=== PATIENT | female | born 1980 | race Caucasian/White ===

== ENCOUNTER 2019-09-29 06:43 | Day surgery (SDC) | payer BC ==
[~2019-09-29 06:43] MED LIST: Lactated Ringers 1,000 ML IV SCH
[2019-09-29] MEDS ORDERED: fentaNYL 250 MCG/5 ML SDV ONE (06:53)
[2019-09-29] MEDS ORDERED: Propofol 200 MG/20 ML SDV ONE (06:53)
[2019-09-29] MEDS ORDERED: Midazolam 1 MG/ML 2 ML SDV ONE (06:53)
[2019-09-29] MEDS ORDERED: Rocuronium 100 MG/10 ML Syringe ONE (06:59)
[2019-09-29] MEDS ORDERED: Ketorolac 30 MG/ML SDV ONE (06:59)
[2019-09-29] MEDS ORDERED: Ondansetron 4 MG/2 ML SDV ONE (06:59)
[2019-09-29] MEDS ORDERED: Lidocaine 2% 5 ML SDV ONE (06:59)
[2019-09-29] MEDS ORDERED: Glycopyrrolate 0.2 MG/ML SDV ONE ×2 (06:59→08:18)
[2019-09-29] MEDS ORDERED: Sugammadex Sodium 200 MG/2 ML VIAL ONE (07:00)
[2019-09-29] MEDS ORDERED: Desflurane 240 ML Bottle ONE (07:09)
[2019-09-29] MEDS ORDERED: fentaNYL 100 MCG/2 ML SDV IVPUSH PRN (07:15)
[2019-09-29] MEDS ORDERED: Atropine 0.1 MG/ML 10 ML Syringe IVPUSH PRN ×2 (07:15)
[2019-09-29] MEDS ORDERED: Sodium Chloride 0.9% 10 ML SDV IV PRN (07:15)
[2019-09-29] MEDS ORDERED: 50% Dextrose in Water 50 ML Syringe IVPUSH PRN (07:15)
[2019-09-29] MEDS ORDERED: Sodium Chloride 0.9% 10 ML Syringe FLUSH PRN (07:15)
[2019-09-29] MEDS ORDERED: Sodium Chloride 0.9% 2.5 ML Syringe FLUSH PRN (07:15)
[2019-09-29] MEDS ORDERED: EPINEPHrine 1:10,000 1 MG/10 ML Syringe IVPUSH PRN (07:15)
[2019-09-29] MEDS ORDERED: Naloxone 0.4 MG/ML Syringe IVPUSH PRN (07:15)
[2019-09-29] MEDS ORDERED: Albuterol 0.083% 2.5 MG/3 ML Neb Soln NEB PRN (07:15)
--- NOTE | 2019-09-29 07:19 | PCM.PREANE ---
Preanesthetic Assessment - Anesthesia/Transfusion/Family Hx Anesthesia History: Prior Anesthesia Without Reaction (Regional only) Family History of Anesthesia Reaction: No Transfusion History: No Prior Transfusion(s) - Review of Systems General: No Symptoms Pulmonary: No Symptoms Cardiovascular: No Symptoms Gastrointestinal: No Symptoms Neurological: No Symptoms Other: Reports: None - Physical Assessment NPO Status Date: 09/28/19 NPO Status Time: 20:00 Vital Signs: Last Vital Signs Temp 97.3 F 09/29/19 06:50 Pulse 106 H 09/29/19 06:50 Resp 18 09/29/19 06:50 BP 114/66 09/29/19 06:50 Pulse Ox Height: 5 ft 5 in Weight: 67.585 kg ASA Class: 2 Mental Status: Alert & Oriented x3 Airway Class: Mallampati = 1 Dentition: Reports: Normal Dentition Thyro-Mental Finger Breadths: 3 Mouth Opening Finger Breadths: 3 ROM/Head Extension: Full Lungs: Clear to Auscultation, Normal Respiratory Effort Cardiovascular: Regular Rate, Regular Rhythm - Lab Values: Laboratory Last Values WBC 7.41 K/uL (4.0-11.0) 09/29/19 07:02 RBC 4.59 M/uL (4.30-5.90) 09/29/19 07:02 Hgb 14.1 g/dL (12.0-16.0) 09/29/19 07:02 Hct 41.2 % (36.0-46.0) 09/29/19 07:02 MCV 89.8 fL (80.0-98.0) 09/29/19 07:02 MCH 30.7 pg (27.0-32.0) 09/29/19 07:02 MCHC 34.2 g/dL (31.0-37.0) 09/29/19 07:02 RDW Std Deviation 42.1 fl (28.0-62.0) 09/29/19 07:02 RDW Coeff of Mayur 13 % (11.0-15.0) 09/29/19 07:02 Plt Count 271 K/uL (150-400) 09/29/19 07:02 MPV 10.50 fL (7.40-12.00) 09/29/19 07:02 Nucleated RBC % 0.0 /100WBC 09/29/19 07:02 Nucleated RBCs # 0 K/uL 09/29/19 07:02 - Allergies Allergies/Adverse Reactions: Allergies Allergy/AdvReac Type Severity Reaction Status Date / Time Penicillins Allergy Rash Verified 09/28/19 15:45 - Anesthesia Plan Free Text/Narrative:: Patient is very anxious this AM. - Acknowledgements Anesthesia Type Planned: General Anesthesia Pt an Appropriate Candidate for the Planned Anesthesia: Yes Alternatives and Risks of Anesthesia Discussed w Pt/Guardian: Yes Pt/Guardian Understands and Agrees with Anesthesia Plan: Yes PreAnesthesia Questionnaire - Past Health History Medical/Surgical History: Denies Medical/Surgical History HEENT History: Reports: None Cardiovascular History: Reports: None Respiratory History: Reports: None Gastrointestinal History: Reports: None Genitourinary History: Reports: Renal Calculus RN HEMODIALYSIS CHARGE History: Reports: Musculoskeletal History: Reports: None Neurological History: Reports: None Psychiatric History: Reports: Anxiety, Depression Endocrine/Metabolic History: Reports: None Hematologic History: Reports: None Immunologic History: Reports: None Oncologic (Cancer) History: Reports: None Dermatologic History: Reports: None - Infectious Disease History Infectious Disease History: Reports: None - Past Surgical History Head Surgeries/Procedures: Reports: None HEENT Surgical History: Reports: Oral Surgery Cardiovascular Surgical History: Reports: None Respiratory Surgical History: Reports: None GI Surgical History: Reports: None Female Surgical History: Reports: Section Endocrine Surgical History: Reports: None Neurological Surgical History: Reports: None Musculoskeletal Surgical History: Reports: None Oncologic Surgical History: Reports: None Dermatological Surgical History: Reports: None - SUBSTANCE USE Smoking Status *Q: Never Smoker Recreational Drug Use History: No - HOME MEDS Home Medications: Home Meds Sertraline HCl [Zoloft] 50 mg PO DAILY 09/06/15 [History] Ascorbic Acid [Vitamin C] 500 mg PO DAILY 09/28/19 [History] Cholecalciferol (Vitamin D3) [Vitamin D3] 2,000 units PO DAILY 09/28/19 [History ] Cyanocobalamin (Vitamin B12) [Vitamin B12] 1,000 mcg PO DAILY 09/28/19 [History] Multivitamin [Multivitamins] 1 tab PO DAILY 09/28/19 [History] buPROPion HCl [Wellbutrin Xl] 300 mg PO DAILY 09/28/19 [History] - CURRENT (IN HOUSE) MEDS Current Meds: Current Medications Lactated Ringer's (Ringers, Lactated) 1,000 mls @ 100 mls/hr IV ASDIRECTED WESELY Last Admin: 09/29/19 07:00 Dose: 100 mls/hr Discontinued Medications Desflurane (Suprane) Confirm Administered Dose 240 ml .ROUTE .STK-MED ONE Stop: 09/29/19 07:10 Fentanyl (Sublimaze) Confirm Administered Dose 250 mcg .ROUTE .STK-MED ONE Stop: 09/29/19 06:54 Glycopyrrolate (Robinul) Confirm Administered Dose 0.2 mg .ROUTE .STK-MED ONE Stop: 09/29/19 07:00 Ketorolac Tromethamine (Toradol) Confirm Administered Dose 30 mg .ROUTE .STK- MED ONE Stop: 09/29/19 07:00 Lidocaine (Xylocaine-Mpf 2%) Confirm Administered Dose 5 ml .ROUTE .STK-MED ONE Stop: 09/29/19 07:00 Midazolam HCl (Versed 1 Mg/Ml) Confirm Administered Dose 2 mg .ROUTE .STK-MED ONE Stop: 09/29/19 06:54 Ondansetron HCl (Zofran) Confirm Administered Dose 4 mg .ROUTE .STK-MED ONE Stop: 09/29/19 07:00 Propofol (Diprivan 20 Ml) Confirm Administered Dose 200 mg .ROUTE .STK-MED ONE Stop: 09/29/19 06:54 Rocuronium [place] (Zemuron) Confirm Administered Dose 100 mg .ROUTE .STK-MED ONE Stop: 09/29/19 07:00 Sugammadex Sodium (Bridion) Confirm Administered Dose 200 mg .ROUTE .STK-MED ONE Stop: 09/29/19 07:01
[2019-09-29] MEDS ORDERED: Bupivacaine 0.5% 10 ML SDV ONE (07:49)
[2019-09-29] MEDS ORDERED: ePHEDrine 50 MG/ML SDV ONE (08:16)
[2019-09-29] MEDS ORDERED: Neostigmine Methylsulfate 1 MG/ML 5 ML Syringe ONE (08:26)
[2019-09-29] MEDS ORDERED: Dexamethasone 4 MG/ML 5 ML MDV ONE (08:44)
--- NOTE | 2019-09-29 09:15 | PCM.OPNOTE ---
- General Post-Op/Procedure Note Date of Surgery/Procedure: 09/29/19 Operative Procedure(s): Laparoscopy with retrieval of IUD Findings: Migrated IUD found in right cul de sac Pre Op Diagnosis: Migrated IUD Post-Op Diagnosis: Same Anesthesia Technique: General ET Tube Primary Surgeon: Di Lindsay Pathology: IUD Fluid Replacement, Intraop: 1,300 EBL in mLs: 5 Complications: none known Condition: Stable Free Text/Narrative:: Dictation [id number]
--- NOTE | 2019-09-29 09:21 | PCM.POSTAN ---
POST ANESTHESIA ASSESSMENT - MENTAL STATUS Mental Status: Alert, Oriented - VITAL SIGNS Vital Signs: Last Vital Signs Temp 37.6 C 09/29/19 08:57 Pulse 81 09/29/19 09:17 Resp 12 09/29/19 09:17 BP 111/69 09/29/19 09:17 Pulse Ox 98 09/29/19 09:17 - RESPIRATORY Respiratory Status: Respiratory Rate WNL, Airway Patent, O2 Saturation Stable - CARDIOVASCULAR CV Status: Pulse Rate WNL, Blood Pressure Stable - GASTROINTESTINAL GI Status: No Symptoms - PAIN Pain Score: 0 - POST OP HYDRATION Hydration Status: Adequate & Stable - OBSERVATIONS Free Text/Narrative:: No anesthesia problems
[2019-09-29 09:38] VITALS: BP 115/67; PULSE 70
--- NOTE | 2019-09-29 09:55 | PCM48HPAN ---
Post Anesthesia Note - EVALUATION WITHIN 48HRS OF ANESTHETIC Vital Signs in Normal Range: Yes Patient Participated in Evaluation: Yes Respiratory Function Stable: Yes Airway Patent: Yes Cardiovascular Function Stable: Yes Hydration Status Stable: Yes Pain Control Satisfactory: Yes Nausea and Vomiting Control Satisfactory: Yes Mental Status Recovered: Yes Vital Signs: Last Vital Signs Temp 36.0 C 09/29/19 09:21 Pulse 70 09/29/19 09:35 Resp 16 09/29/19 09:35 BP 115/67 09/29/19 09:35 Pulse Ox 100 09/29/19 09:35 - COMMENTS/OBSERVATIONS Free Text/Narrative:: No anesthesia problems
--- NOTE | 2019-09-29 10:04 | OR ---
SURGEON: Di Lindsay M.D. DATE OF PROCEDURE: PREOPERATIVE DIAGNOSIS: Migrated intrauterine device. POSTOPERATIVE DIAGNOSIS: Migrated intrauterine device. PROCEDURE: Laparoscopy with intrauterine device retrieval. PRIMARY SURGEON: Di Lindsay MD. ANESTHESIA: General endotracheal anesthesia. ESTIMATED BLOOD LOSS: 5 mL. FLUIDS: 1300 mL of crystalloid. COMPLICATIONS: None known. FINDINGS: Migrated IUD found in the right posterior cul-de-sac. DISPOSITION: The patient to PACU, stable. PROCEDURE DETAILS: Alicia is a 39-year-old female who came in for her well-woman exam and on examination it was instantly noted that the strings could not be identified from the IUD device. Therefore, ultrasound was performed and IUD was seen to appear to be migrated outside of the uterus along the right fundal region. Given this finding, discussed with Alicia proceeding with surgical removal of the IUD. She would like to proceed with surgical removal of the device. Risks of procedure have been discussed with her. Proper consent obtained. The patient was taken to the operating room where she underwent general endotracheal anesthesia, was placed in modified dorsal lithotomy position, was prepped and draped in the usual sterile fashion. Bladder was drained. Time-out was performed. A Graves speculum was introduced. Posterior lip of the cervix was grasped. Uterine Hulka manipulator was gently introduced. Instruments other than the Hulka manipulator were now removed from the vagina. Gloves changed. Attention turned abdominally. Infraumbilically, a 5 mm midline sagittal skin incision was created. Anterior abdominal wall was tented upward. Veress needle was introduced. Saline hanging drop test was performed. Pneumoperitoneum was achieved. The Veress needle removed. Trocar was introduced. Laparoscope introduced. Peritoneal contents were identified. Along the midline, with the previous scar, created a 5 mm skin incision after prepping the region with 0.5% Marcaine and introducing trocar under direct visualization. The uterus was inspected as well as the adnexa and device was found along the right posterior cul-de-sac. It was sitting freely within the cul-de-sac. Therefore, the end was grasped and retrieved through the suprapubic trocar site. This will be sent to pathology for further analysis. The pelvis was now copiously irrigated, inspected, hemostasis evident. Upper abdomen inspected, no signs of pathology. The patient tolerated the procedure well. The pneumoperitoneum was released. Trocars were removed under direct visualization as well as laparoscope. The skin edges were reapproximated with 4-0 Monocryl in subcuticular fashion. Uterine Hulka manipulator was now removed. Cervix inspected, found to be hemostatic. Sponge, instrument, and needle count was correct x2. The patient tolerated the procedure well overall. She will go to PACU in stable condition, specimen to pathology. HONG / ROSOEVELT /[id number]
== END 2019-09-29 10:24 | disposition home or self-care (01) ==
LOC: MW.SDS 06:43
PROVIDERS: ATTEND Obstetrics & Gynecology
DX: T83.32XA Displacement of intrauterine contraceptive device, initial encounter (principal); F41.9 Anxiety disorder, unspecified; Z88.0 Allergy status to penicillin; Z79.899 Other long term (current) drug therapy
CPT/HCPCS: 84703; 85027; 88300; J1100; J1885; J2001; J2250; J2405; J2704; J3010; J3490; J7120